=== PATIENT | female | born 1940 | race Caucasian/White ===

== ENCOUNTER 2016-09-23 11:25 | Emergency (ER) | payer OTHER, BC ==
[~2016-09-23] VITALS: Ht 165.1 cm; Wt 86.2 kg
[~2016-09-23 11:25] MED LIST: ASCORBIC ACID500 M3 PO; CALCIUM 600 +1 EAC3 PO; CHROMIUM200 MCG PO; ESTRADERM1 EAC1 TP; MULTIVITAMIN1 EAC2 PO; VITAMIN D400 UNI1 PO; VOLTAREN 1% GE100 GM TP; ZINC GLUCONATE100 MG PO
[2016-09-23] MEDS ORDERED: DILAUDID2 MG PO (14:04)
[2016-09-23 14:16] VITALS: BP 159/81
== END 2016-09-23 14:18 | disposition home or self-care (01) ==
LOC: EME 11:25
DX: M54.5 Low back pain (principal); M25.569 Pain in unspecified knee; M25.579 Pain in unspecified ankle and joints of unspecified foot
CPT/HCPCS: 99281; 99284; J2270

== ENCOUNTER → 2016-11-28 | Outpatient (CLI) | payer MEDICARE, BC ==
[~2016-11-28] MED LIST changes: +CO Q-10100 MG PO; +DILAUDID2 MG PO; +EXTRA STRENGTH500 M1 PO; +FISH OIL 1,0001 EAC7 PO; +MAGNESIUM400 M1 PO
== END | disposition home or self-care (01) ==
LOC: CDC 15:26
DX: I49.3 Ventricular premature depolarization (principal); M43.10 Spondylolisthesis, site unspecified
CPT/HCPCS: 93000

== ENCOUNTER 2016-12-05 08:55 | Inpatient (IN) | payer OTHER, BC ==
[~2016-12-05] VITALS: Ht 162.6 cm; Wt 89.3 kg
[2016-12-05 09:24] VITALS: BP 150/70
[2016-12-05 16:27] VITALS: BP 136/63
[2016-12-05 19:58] VITALS: BP 148/68
[2016-12-05 23:18] VITALS: BP 128/62
[2016-12-06 03:04] VITALS: BP 113/57
[2016-12-06 07:35] VITALS: BP 101/51
[2016-12-06 11:42] VITALS: BP 101/54
[2016-12-06 16:07] VITALS: BP 105/51
[2016-12-06 23:46] VITALS: BP 140/66
[2016-12-07 04:22] VITALS: BP 132/72
[2016-12-07 08:26] VITALS: BP 135/61
[2016-12-07] MEDS ORDERED: FLEXERIL5 MG PO (08:26)
[2016-12-07] MEDS ORDERED: ENDOCET 5-3251 EACH PO (08:26)
[2016-12-07] MEDS ORDERED: PEPCID20 MG PO (16:01)
== END 2016-12-07 13:54 | DRG 460 ==
LOC: 2SOUTH → 3EAST 08:55 → 2SOUTH 08:55 → 3EAST 16:04
PROC: 0SG00AJ Fusion of Lumbar Vertebral Joint with Interbody Fusion Device, Posterior Approach, Anterior Column, Open Approach (ICD-10-PCS; principal; 2016-12-05)
DX: M43.16 Spondylolisthesis, lumbar region (principal); K21.9 Gastro-esophageal reflux disease without esophagitis; M47.26 Other spondylosis with radiculopathy, lumbar region; M53.2X6 Spinal instabilities, lumbar region; M48.06 Spinal stenosis, lumbar region; M79.1 Myalgia; M15.0 Primary generalized (osteo)arthritis
CPT/HCPCS: 72100; 76000; 86900; 86901; 94799; 97530 GO; C1713; J0690; J1580; J1885; J3010; J3480

== ENCOUNTER 2016-12-07 12:04 | Inpatient (IN) | payer OTHER, BC ==
[~2016-12-07] VITALS: Ht 165.1 cm; Wt 89.2 kg
[~2016-12-07 12:04] MED LIST changes: +ENDOCET 5-3251 EACH PO; +FLEXERIL5 MG PO
[2016-12-07 14:23] VITALS: BP 135/63
[2016-12-07 15:58] VITALS: BP 176/77
[2016-12-07] MEDS ORDERED: PEPCID20 MG PO (16:01)
[2016-12-07 16:56] LABS: HEMATOCRIT 34.9 % (36.0-46.0); MCH 30.5 PG (29.0-34.0); MCV 92.6 FL (83-99); MEAN PLAT.VOLUME 11.7 uM^3 (9.5-12.4); RBC DIS.WIDTH-CV 13.6 % (11.8-14.6); RBC DIS.WIDTH-SD 46.6 % (39-53); RED BLOOD COUNT 3.77 M/uL (3.80-5.20)
[2016-12-07 17:09] LABS: CHLORIDE 103 mEq/L (99-109); POTASSIUM 3.8 mEq/L (3.7-5.4); SODIUM 138 mEq/L (136-147)
[2016-12-07 17:11] LABS: GLUCOSE 117 mg/dL (70-99)
[2016-12-07 17:13] LABS: ANION GAP 10 MEQ/L (2-14); TOTAL BILIRUBIN 0.8 mg/dL (0.0-1.0)
[2016-12-07 17:15] LABS: ALKALINE PHOSPHATASE 66 IU/L (3-129); GFR ESTIMATE (CALCULATED) > 59 mL/min/
[2016-12-07 17:16] LABS: UREA NITROGEN (BUN) 10 mg/dL (9-23)
[2016-12-07 19:17] LABS: PLATELET COUNT 176 K/uL (156-360); WHITE BLOOD COUNT 8.8 K/uL (4.1-10.2)
[2016-12-07 21:53] VITALS: BP 140/60
[2016-12-08 00:34] VITALS: BP 132/63
[2016-12-08 05:41] VITALS: BP 136/67
[2016-12-08 15:37] VITALS: BP 149/65
[2016-12-09 05:45] VITALS: BP 126/59
[2016-12-09 15:00] VITALS: BP 149/70
[2016-12-10 06:03] VITALS: BP 135/66
[2016-12-10 15:28] VITALS: BP 125/60
[2016-12-11 05:26] VITALS: BP 151/63
[2016-12-11 15:50] VITALS: BP 144/67
[2016-12-12 00:28] LABS: ADD MIUA? YES; BILIRUBIN NEGATIVE; BLOOD MODERATE; COLOR YELLOW ((YELLOW)); GLUCOSE (STRIP) NEGATIVE; KETONES 5; LEUKOCYTES LARGE; NITRITE NEGATIVE; PROTEIN (STRIP) NEGATIVE; SPECIFIC GRAVITY 1.006 (1.000-1.030); UROBILINOGEN 0.2 MG/DL (0.2-1.0)
[2016-12-12 00:46] LABS: EPITHELIAL CELLS RARE /HPF; WHITE BLOOD CELLS TNTC /HPF (0-5)
[2016-12-12 00:47] LABS: AMORPHOUS PHOSPHATE CRYSTALS 2+; BACTERIA 2+ /HPF; CASTS NONE SEEN /LPF; CRYSTALS PRESENT; MUCUS NONE SEEN /LPF
[2016-12-12 05:12] VITALS: BP 145/67
[2016-12-12 15:57] VITALS: BP 124/59
[2016-12-13 05:35] VITALS: BP 132/59
[2016-12-13 17:19] VITALS: BP 123/57
[2016-12-14 04:50] VITALS: BP 130/61
[2016-12-14 15:45] VITALS: BP 136/62
[2016-12-15 04:45] VITALS: BP 146/60
[2016-12-15 15:12] VITALS: BP 117/53
[2016-12-16 05:58] VITALS: BP 125/58
[2016-12-16 14:59] VITALS: BP 131/60
[2016-12-17 05:29] VITALS: BP 133/61
[2016-12-17 15:15] VITALS: BP 123/77
[2016-12-18 04:34] VITALS: BP 148/67
[2016-12-18 06:51] LABS: HEMATOCRIT 36.3 % (36.0-46.0); MCH 30.4 PG (29.0-34.0); MCHC 32.5 G/DL (30.0-36.0); MCV 93.6 FL (83-99); MEAN PLAT.VOLUME 10.4 uM^3 (9.5-12.4); RBC DIS.WIDTH-CV 13.1 % (11.8-14.6); RBC DIS.WIDTH-SD 44.8 % (39-53); RED BLOOD COUNT 3.88 M/uL (3.80-5.20)
[2016-12-18 07:03] LABS: PLATELET COUNT 385 K/uL (156-360); WHITE BLOOD COUNT 5.8 K/uL (4.1-10.2)
[2016-12-18 07:14] LABS: ALKALINE PHOSPHATASE 74 IU/L (3-129); ANION GAP 7 MEQ/L (2-14); CHLORIDE 102 MEQ/L (99-109); GFR ESTIMATE (CALCULATED) > 59 mL/min/; GLUCOSE 81 mg/dL (70-99); POTASSIUM 4.8 MEQ/L (3.7-5.4); SAMPLE HEMOLYSIS CHECK 0; SAMPLE ICTERIC CHECK 0; SAMPLE LIPEMIA CHECK 0; SODIUM 140 MEQ/L (136-147); TOTAL BILIRUBIN 0.3 MG/DL (0.0-1.0); UREA NITROGEN (BUN) 15 mg/dL (9-23)
[2016-12-18] MEDS ORDERED: SENNA PLUS TAB1 EACH PO (13:01)
[2016-12-18 15:46] VITALS: BP 117/61
[2016-12-19 04:06] VITALS: BP 106/67
== END 2016-12-19 13:32 | disposition home health service (06) | DRG 551 ==
LOC: 3WEST 12:04
PROVIDERS: Physical Medicine & Rehabilitation Pain Medicine; Psychiatry & Neurology Neurology
PROC: F07M7ZZ Manual Therapy Techniques Treatment of Musculoskeletal System - Whole Body (ICD-10-PCS; principal; 2016-12-07)
DX: M43.16 Spondylolisthesis, lumbar region (principal); N39.0 Urinary tract infection, site not specified; G93.40 Encephalopathy, unspecified; M48.06 Spinal stenosis, lumbar region; Z98.1 Arthrodesis status; G47.30 Sleep apnea, unspecified; G89.18 Other acute postprocedural pain; K59.00 Constipation, unspecified; Z68.32 Body mass index [BMI] 32.0-32.9, adult; Z90.710 Acquired absence of both cervix and uterus; Z90.49 Acquired absence of other specified parts of digestive tract
CPT/HCPCS: 80053; 81003; 82306; 82607; 82746; 83735; 84443; 85027; 87086; 93970; 94799; 97110 GO; 97530 GP